=== PATIENT | female | born 1990 | race Caucasian/White ===

== ENCOUNTER 2017-07-04 00:57 | Emergency (ER) | payer OTHER ==
[~2017-07-04] VITALS: Ht 157.5 cm; Wt 55.0 kg
[2017-07-04 01:02] VITALS: Ht 157.5 cm; Wt 55.0 kg
[2017-07-04] MEDS ORDERED: EPIN0.3P4 INJ (01:42)
[2017-07-04] MEDS ORDERED: CETI10CA PO (01:42)
--- NOTE | 2017-07-04 01:56 | ERD ---
ER Documentation Chief Complaint Chief Complaint c/o facial swelling and body itchiness x 30 min. Took Benadryl. (Shrimp) HPI Otherwise healthy 26-year-old female presents one hour status post allergic reaction. Patient ate shrimp. Lip started to swell. Benadryl 30 minutes ago with improvement in symptoms. Denies fever, cough, dyspnea, dysphagia, drooling , change in voice. No similar symptoms in the past. Known medication allergies. Requesting patch test. Patient has no other complaints and describes no other associated manifestations. Nursing notes have been reviewed and are consistent with history given. ROS All systems reviewed and are negative except as per history of present illness. Medications Home Meds Active Scripts Epinephrine (Epipen 2-Jaime) 0.3 Mg/0.3 Ml Pen.injctr, 1 EA INJ ONCE Y for ALLERGIC REACTION, #1 EA Prov:ANGELIC YOUNG PA-C 07/04/17 Cetirizine Hcl* (Zyrtec*) 10 Mg Capsule, 10 MG PO QAM, #10 TAB.CHEW Prov:ANGELIC YOUNG PA-C 07/04/17 PMhx/Soc History of Surgery: No Anesthesia Reaction: No Hx Neurological Disorder: No Hx Respiratory Disorders: No Hx Cardiac Disorders: No Hx Psychiatric Problems: No Hx Miscellaneous Medical Probl: No Hx Alcohol Use: No Hx Substance Use: No Hx Tobacco Use: No Smoking Status: Never smoker Physical Exam Vitals Vital Signs Date Time Temp Pulse Resp B/P Pulse Ox O2 Delivery O2 Flow Rate FiO2 07/04/17 01:02 97.0 83 18 148/86 100 Physical Exam Const: Healthy-appearing. Well-nourished. Well-developed. No acute distress. Skin: Urticaria 15-20 cm on upper shoulders and neck bilaterally. No petechiae, ulcer, induration, or jaundice. Good turgor. Pulm: Good air movement. No rhonchi, wheezes or crackles in all lobes bilaterally auscultated. No abnormal tympani or dullness on percussion in all lobes bilaterally. Equal and appropriate lung expansion. No abnormal tactile fremitus palpated. No retractions, stridor, tripoding or drooling. Oral: No oral edema or lesions visualized. Mucous membranes moist and pink. Neck: No cervical lymphadenopathy, masses or goiter palpated. Trachea midline. Supple ~ No meningismus. Head: Normocephalic, Atraumatic. Eyes: Non-injected; No scleral erythema, discharge or foreign body. EOMI and SURESH bilaterally. Ears: Normal External Ears, EACs clear, TM normal bilaterally without erythema. Nose: Normal nose without discharge, septal deviation, or sinus tenderness. Cardio: Regular rate and rhythm; No murmurs, gallops or rubs auscultated. No JVD grossly observed. Radial and posterior tibial pulses 2+ bilaterally. No cyanosis. Capillary refill less than 2 seconds. Abd: Soft, non tender, non distended. No guarding, masses. Normal bowel sounds. No McBurney's point tenderness. MS: Normal motor strength, normal tone with gross examination. Back: No midline, flank or CVA tenderness. Ext: No cyanosis, edema or palpable cord. Normal movement of all extremities grossly observed. Neur: Awake, alert and oriented x3. Neurovascularly intact bilaterally. Psych: Normal Mood and Affect. Results 24 hrs Current Medications Medications (Trade) Dose Ordered Sig/Rut Route PRN Reason Start Time Stop Time Status Last Admin Dose Admin Famotidine (Pepcid) 20 mg ONCE ONCE PO 07/04/17 02:00 07/04/17 02:01 DC 07/04/17 01:58 Procedures/MDM Patient is being worked up and evaluated for acute rash as described in the history and physical exam. Benadryl taken 30 minutes prior to examination. Patient was given Pepcid in the ED. Reevaluation revealed improvement of symptoms. The most likely diagnosis is acute allergic reaction/urticaria due to shrimp. The treatment plan will thus include Zyrtec, continuation of Benadryl , and EpiPen as needed. At this time, I have little suspicion for vasculitis, erythema multiforme, contact dermatitis, or erythema migrans / lyme disease. I no longer have suspicion for endangerment of the airway. I have spoke with the patient regarding their condition and future management. They have verbally responded that they understand their status and treatment plan. The patients vitals are stable, and their current condition is appropriate for discharge. The patient will be given discharge instructions with return precautions. Discharge medications: Cetirizine every morning, EpiPen. Departure Diagnosis: Primary Impression: Allergic reaction Encounter type: initial encounter Qualified Code: T78.40XA - Allergic reaction, initial encounter Condition: Stable Patient Instructions: Using an EpiPen Auto-Injector, Food Allergy Additional Instructions: Follow up with your PCP within the next 1-3 days for a more thorough evaluation and a possible referral to a specialist. Return the the emergency department immediately if symptoms worsen or change. If you have any questions regarding medications, ask your pharmacist or us before you leave. If any adverse reactions occur while taking your medications, discontinue the treatment and return to the emergency department immediately. Take your medications as directed, and complete the entire course of treatment. ANGELIC YOUNG PA-C Jul 04, 2017 01:55
[2017-07-04] MEDS ORDERED: FAMOTIDINE 20 MG TAB PO ONE (02:00)
[2017-07-04 02:27] VITALS: BP 136/70; PULSE 67; RESP 18; TEMP 98.1
== END 2017-07-04 02:27 | disposition home or self-care (01) ==
LOC: FTE 00:57
DX: R60.0 Localized edema (principal)
CPT/HCPCS: Z7502; Z7610; 99283